=== PATIENT | female | born 1990 | race Caucasian/White ===

== ENCOUNTER 2019-01-30 16:28 | Inpatient (IN) | payer OTHER ==
[~2019-01-30] VITALS: Ht 160 cm; Wt 56.0 kg
[2019-01-31 13:07] VITALS: BP 106/71
== END 2019-01-31 13:46 | disposition home or self-care (01) | DRG 101 ==
LOC: ED 17:19 → EDIP 18:22 → 4WST 19:25 → DCLOUNGE 01-31 13:40
PROVIDERS: ADMIT Family Medicine; ATTEND Family Medicine
DX: G40.909 Epilepsy, unspecified, not intractable, without status epilepticus (principal); F12.90 Cannabis use, unspecified, uncomplicated; F14.10 Cocaine abuse, uncomplicated; H53.2 Diplopia; H55.00 Unspecified nystagmus; S01.81XA Laceration without foreign body of other part of head, initial encounter; W18.39XA Other fall on same level, initial encounter; Y93.89 Activity, other specified; Y92.89 Other specified places as the place of occurrence of the external cause; Y99.8 Other external cause status; R41.3 Other amnesia
CPT/HCPCS: 36415; 80048; 80175; 80177; 80307; 82040; 84702; 84703; 85025; 93005; 99285; G0378; J7030